=== PATIENT | male | born 1960 | race Caucasian/White ===

== ENCOUNTER 2021-01-03 10:52 | Emergency (ER) | payer SELFPAY ==
[~2021-01-03] VITALS: Ht 177 cm; Wt 90.0 kg
--- NOTE | 2021-01-03 11:55 | ED Integumentary General ---
General Stated Complaint: R ARM LAC Source: patient Exam Limitations: no limitations History of Present Illness Date Seen by Provider: Jan 03, 2021 Time Seen by Provider: 11:20 Initial Comments To ER with the laceration to the ulnar side of the right forearm from a piece of broken metal while he was cleaning up a building with a piece of metal that ended up breaking. Tetanus is not up-to-date. Timing/Duration: just prior to arrival Severity: moderate Associated Symptoms: denies symptoms Allergies and Home Medications Patient Home Medication List Home Medication List Reviewed: Yes Review of Systems Review of Systems Constitutional: see HPI EENTM: see HPI Respiratory: no symptoms reported Cardiovascular: no symptoms reported Genitourinary: no symptoms reported Musculoskeletal: no symptoms reported Skin: see HPI Psychiatric/Neurological: No Symptoms Reported Endocrine: No Symptoms Reported Physical Exam Vital Signs Capillary Refill : General Appearance: WD/WN, no apparent distress HEENT: PERRL/EOMI, normal ENT inspection Respiratory: no respiratory distress, no accessory muscle use Neurologic/Psychiatric: alert, normal mood/affect, oriented x 3 Skin: normal color, warm/dry Skin Problem Location: upper extremities (There is a 8 cm laceration down to the subcutaneous tissue to the ulnar side of the mid right forearm. Normal flexion abilities of the fingers, minimal bleeding, normal sensation distally. This was anesthetized with 4 mL of 1% lidocaine without epinephrine then scrubbed with chlorhexidine/saline solution and closed with a continuous suture size 5-0 Prolene.) Departure Impression Primary Impression: Arm laceration Disposition: 01 HOME, SELF-CARE Condition: Stable Departure-Patient Inst. Decision time for Depature: 11:54 Referrals: NO,LOCAL PHYSICIAN (PCP/Family) Primary Care Physician Patient Instructions: Laceration Repair With Stitches (DC) Add. Discharge Instructions: 1. You can shower letting water run over this starting tonight. Keep it covered when you are out working. Return to ER in about 7-10 days to have the stitches removed. KM YAN APRN Jan 03, 2021 11:55
[2021-01-03] MEDS ORDERED: TETANUS,DIPTH,PERTUSS P/F (BOOSTRIX) 0.5 ML VIAL IM ONE (12:00)
[2021-01-03 12:12] VITALS: BP 153/68
== END 2021-01-03 12:12 | disposition home or self-care (01) ==
LOC: ER 10:55
DX: S51.811A Laceration without foreign body of right forearm, initial encounter (principal); Z23 Encounter for immunization; W26.8XXA Contact with other sharp object(s), not elsewhere classified, initial encounter
CPT/HCPCS: 12002; 90715

== ENCOUNTER 2021-01-15 09:54 | Emergency (ER) | payer SELFPAY ==
[~2021-01-15] VITALS: Ht 177.8 cm; Wt 90.0 kg
[2021-01-15 10:10] VITALS: BP 152/93
== END 2021-01-15 10:20 | disposition home or self-care (01) ==
LOC: EDUNIT# 09:54 → ER 09:55
DX: Z48.02 Encounter for removal of sutures (principal)